=== PATIENT | female | born 1935 | race African-American/Black ===

== ENCOUNTER 2018-05-14 12:59 | Emergency (ER) | payer MEDICARE, OTHER ==
--- NOTE | 2018-05-14 13:31 | EKG ---
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
--- NOTE | 2018-05-14 13:51 | RAD ---
EXAM: Head CT without contrast. HISTORY: Fall. TECHNIQUE: Computed tomographic images of the head were obtained without contrast. *One or more of the following individualized dose reduction techniques were utilized for this examination: 1. Automated exposure control. 2. Adjustment of the mA and/or kV according to patient size. 3. Use of iterative reconstruction technique. COMPARISON: 09/06/2004. FINDINGS: There is no acute or subacute hemorrhage. There is cerebral atrophy. There are scattered areas of hypodensity throughout the cerebral white matter, likely due to chronic small vessel disease. 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 There is a right frontal scalp soft tissue hematoma. The visualized paranasal sinuses are clear. There is minimal fluid within the mastoid air cells. No suspicious calvarial lesion is seen. IMPRESSION: 1. Right frontal scalp soft tissue hematoma. 2. Scattered areas of hypodensity within the cerebral white matter, likely due to chronic small vessel disease. 3. 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 4. Cerebral atrophy. Electronically signed by: Cathie Horta MD (05/14/2018 1:48 PM) [facility]
[2018-05-14 13:58] VITALS: BP 163/95
[2018-05-14 14:01] LABS: BILIRUBIN,URINE NEG (NEG); CLARITY,URINE HAZY; COLOR,URINE YELLOW; GLUCOSE,URINE NEG (NEG)
[2018-05-14 14:02] LABS: BACTERIA,URINE FEW /HPF (0-FEW); NITRITE,URINE NEG (NEG); RBC,URINE 0 /HPF (0-2); SQUAMOUS EPITHELIAL CELL,UR MANY /LPF; UROBILINOGEN,URINE 0.2 mg/dL (0.2 mg/dL)
--- NOTE | 2018-05-14 14:05 | PHYS DOC ---
Adult General Chief Complaint Chief Complaint: MECHANICAL FALL HPI HPI 82-year-old female presents via EMS from her nursing facility for fall. The patient was found down at the care facility. When she was found, she was awake and they are unsure if she lost consciousness. When I asked the patient if she remembers the fall she does not remember the fall. She does not complain of any pain at this time. She tells me that she has been "falling all week". When asked if she knows why she is unsure. She denies having any pain or feeling dizzy prior to falling. She just started to go down. Patient denies nausea, vomiting, chest pain, shortness of breath, dysuria, urinary frequency. She is on any anticoagulant or blood thinner. Patient has dementia at baseline but is answering all my questions without difficulty. Review of Systems Review of Systems Constitutional: Denies fever or chills [] Eyes: Denies change in visual acuity, redness, or eye pain [] HENT: Denies nasal congestion or sore throat [] Respiratory: Denies cough or shortness of breath [] Cardiovascular: No additional information not addressed in HPI [] GI: Denies abdominal pain, nausea, vomiting, bloody stools or diarrhea [] : Denies dysuria or hematuria [] Musculoskeletal: Denies back pain or joint pain [] Integument: Denies rash or skin lesions [] Neurologic: Denies headache, focal weakness or sensory changes [] Endocrine: Denies polyuria or polydipsia [] All other systems were reviewed and found to be within normal limits, except as documented in this note. Physical Exam Physical Exam Constitutional: Well developed, well nourished, no acute distress, non-toxic appearance. [] HENT: Normocephalic, bilateral external ears normal, oropharynx moist, no oral exudates, nose normal. Patient has a contusion on her forehead.[] Eyes: PERRLA, EOMI, conjunctiva normal, no discharge. [] Neck: Normal range of motion, no tenderness, supple, no stridor. [] Cardiovascular: Heart rate regular rhythm, systolic ejection murmur[] Lungs & Thorax: Bilateral breath sounds clear to auscultation [] Abdomen: Bowel sounds normal, soft, no tenderness, no masses, no pulsatile masses. [] Skin: Warm, dry, no erythema, no rash. [] Back: No tenderness, no CVA tenderness. [] Extremities: No tenderness, no cyanosis, no clubbing, ROM intact, no edema. [] Neurologic: Alert and oriented X 3, normal motor function, normal sensory function, no focal deficits noted. [] Psychologic: Affect normal, judgement normal, mood normal. [] Current Patient Data Lab Results Laboratory Tests Test 05/14/18 13:15 Urine Collection Type Unknown Urine Color Yellow Urine Clarity Hazy Urine pH 6.5 Urine Specific [place] 1.010 Urine Protein Neg (NEG-TRACE) Urine Glucose (UA) Neg mg/dL (NEG) Urine Ketones (Stick) Neg mg/dL (NEG) Urine Blood Neg (NEG) Urine Nitrite Neg (NEG) Urine Bilirubin Neg (NEG) Urine Urobilinogen Dipstick 0.2 mg/dL (0.2 mg/dL) Urine Leukocyte Esterase Mod (NEG) Urine RBC 0 /HPF (0-2) Urine WBC 5-10 /HPF (0-4) Urine Squamous Epithelial Cells Many /LPF Urine Bacteria Few /HPF (0-FEW) Urine Mucus Slight /LPF EKG EKG Sinus rhythm, rate 75, leftward axis deviation, ST elevations or depressions, possible type II heart block with intermittent 2-1 conduction pattern.[] Radiology/Procedures Radiology/Procedures [] Impressions: EXAM: Head CT without contrast. HISTORY: Fall. TECHNIQUE: Computed tomographic images of the head were obtained without contrast. *One or more of the following individualized dose reduction techniques were utilized for this examination: 1. Automated exposure control. 2. Adjustment of the mA and/or kV according to patient size. 3. Use of iterative reconstruction technique. COMPARISON: 09/06/2004. FINDINGS: There is no acute or subacute hemorrhage. There is cerebral atrophy. There are scattered areas of hypodensity throughout the cerebral white matter, likely due to chronic small vessel disease. 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 There is a right frontal scalp soft tissue hematoma. The visualized paranasal sinuses are clear. There is minimal fluid within the mastoid air cells. No suspicious calvarial lesion is seen. IMPRESSION: 1. Right frontal scalp soft tissue hematoma. 2. Scattered areas of hypodensity within the cerebral white matter, likely due to chronic small vessel disease. 3. 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 4. Cerebral atrophy. Electronically signed by: Cathie Horta MD (05/14/2018 1:48 PM) [facility] Course & Med Decision Making Course & Med Decision Making Pertinent Labs and Imaging studies reviewed. (See chart for details) Patient's labs are unremarkable. Her head CT is negative for acute findings. Her urinalysis is negative for infection. I do not find anything concerning justify admission for this patient. I believe she is stable to be discharged back to her care facility. [] Dragon Disclaimer Dragon Disclaimer This electronic medical record was generated, in whole or in part, using a voice recognition dictation system. SHIRAZ SAUCEDO DO May 14, 2018 14:05
[2018-05-14 14:09] LABS: BASO % 1 % (0-3); EOS # 0.1 x10^3/uL (0.0-0.7); EOS % 2 % (0-3); HEMATOCRIT 38.7 % (36.0-47.0); HEMOGLOBIN 12.7 g/dL (12.0-15.5); LYMPH # 1.1 x10^3/uL (1.0-4.8); LYMPH % 27 % (24-48); MEAN CORPUSCULAR HEMOGLOBIN 27 pg (25-35); MEAN CORPUSCULAR HGB CONC 33 g/dL (31-37); MEAN CORPUSCULAR VOLUME 83 fL (79-100); MONO # 0.6 x10^3/uL (0.0-1.1); MONO % 15 % (0-9); NEUT # 2.3 x10^3uL (1.8-7.7); NEUT % 56 % (31-73); PLATELET COUNT 158 x10^3/uL (140-400); RED BLOOD COUNT 4.64 x10^6/uL (3.50-5.40); RED CELL DISTRIBUTION WIDTH 15.2 % (11.5-14.5); WHITE BLOOD COUNT 4.1 x10^3/uL (4.0-11.0)
[2018-05-14 14:22] LABS: ALBUMIN 3.5 g/dL (3.4-5.0); ALBUMIN/GLOBULIN RATIO 1.1 (1.0-1.7); CALCIUM 9.2 mg/dL (8.5-10.1); CREATININE 1.1 mg/dL (0.6-1.0); GFR 47.8; POTASSIUM 3.9 mmol/L (3.5-5.1); TOTAL BILIRUBIN 0.4 mg/dL (0.2-1.0); TOTAL PROTEIN 6.7 g/dL (6.4-8.2)
[2018-05-14] MEDS ORDERED: LORazepam 2 MG/ML VIAL ONE (17:02)
[2018-05-14] MEDS ORDERED: LORazepam 2 MG/ML VIAL IM ONE (17:15)
== END 2018-05-14 16:30 ==
LOC: ER 12:59
DX: S00.83XA Contusion of other part of head, initial encounter (principal); G31.9 Degenerative disease of nervous system, unspecified; I63.8 Other cerebral infarction; I73.9 Peripheral vascular disease, unspecified; F02.80 Dementia in other diseases classified elsewhere, unspecified severity, without behavioral disturbance, psychotic disturbance, mood disturbance, and anxiety; W19.XXXA Unspecified fall, initial encounter; Y93.89 Activity, other specified; Y92.89 Other specified places as the place of occurrence of the external cause; Y99.8 Other external cause status
CPT/HCPCS: 36415; 70450; 80053; 81001; 84484; 85025; 87086; 93005; 96372; 99285; J2060

== ENCOUNTER 2018-08-06 08:34 | Emergency (ER) | payer MEDICARE, OTHER ==
[~2018-08-06] VITALS: Ht 157.5 cm; Wt 75.0 kg
[2018-08-06 09:14] LABS: BASO # 0.1 x10^3/uL (0.0-0.2); BASO % 1 % (0-3); EOS # 0.1 x10^3/uL (0.0-0.7); EOS % 2 % (0-3); HEMATOCRIT 42.6 % (36.0-47.0); HEMOGLOBIN 13.6 g/dL (12.0-15.5); LYMPH # 1.3 x10^3/uL (1.0-4.8); LYMPH % 36 % (24-48); MEAN CORPUSCULAR HEMOGLOBIN 27 pg (25-35); MEAN CORPUSCULAR HGB CONC 32 g/dL (31-37); MEAN CORPUSCULAR VOLUME 85 fL (79-100); MONO # 0.6 x10^3/uL (0.0-1.1); MONO % 16 % (0-9); NEUT # 1.7 x10^3uL (1.8-7.7); NEUT % 46 % (31-73); PLATELET COUNT 152 x10^3/uL (140-400); RED BLOOD COUNT 5.01 x10^6/uL (3.50-5.40); WHITE BLOOD COUNT 3.7 x10^3/uL (4.0-11.0)
--- NOTE | 2018-08-06 09:14 | RAD ---
EXAM: AP, oblique and lateral views of the left knee DATE: 08/06/2018 8:20 AM INDICATION: fell today, left knee pain COMPARISON: No Prior FINDINGS/ IMPRESSION: No evidence of acute fracture or dislocation. Decreased bone mineral density. Small knee joint effusion although suboptimal lateral projection. Left knee joint osteoarthritis with mild lateral compartment joint space narrowing and tricompartment osteophytes. Atherosclerotic vascular calcifications are seen. Electronically signed by: Tim Lee MD (08/06/2018 9:10 AM) [facility]
--- NOTE | 2018-08-06 09:18 | PHYS DOC ---
Past History Past Medical History: A-Fib, Anxiety, Dementia, Depression, Hypertension Past Surgical History: No Surgical History Alcohol Use: None Drug Use: None Adult General Chief Complaint Chief Complaint: MECHANICAL FALL [facility] HPI Patient is an 82-year-old female who presents with report of fall in assisted. Patient indicates that she has some pain in her left knee. EMS reports that patient also had small laceration just lateral to left side of her mouth. Patient denies any head injury or neck pain. Patient had no loss of consciousness. She denies any chest pain or shortness of breath. She rates pain in her knee is mild. She states the pain is worsened with palpation and movement of the knee. Review of Systems Review of Systems Constitutional: Denies fever or chills [] Respiratory: Denies cough or shortness of breath [] Cardiovascular: No additional information not addressed in HPI [] GI: Denies abdominal pain, nausea, vomiting or diarrhea [] Musculoskeletal: Denies back pain. Complains of left knee pain. [] Integument: Small superficial laceration[] Neurologic: Denies headache, focal weakness or sensory changes [] All other systems were reviewed and found to be within normal limits, except as documented in this note. Allergies Allergies Allergies Coded Allergies Type Severity Reaction Last Updated Verified No Known Drug Allergies 05/14/18 No Physical Exam Physical Exam Constitutional: Well developed, well nourished, no acute distress, non-toxic appearance. [] HENT: Normocephalic, atraumatic, bilateral external ears normal, oropharynx moist, no oral exudates, nose normal. The left-sided lower first premolar demonstrates mobility. No active bleeding or other signs of trauma are noted. [] Eyes: PERRLA, EOMI, conjunctiva normal, no discharge. [] Neck: Normal range of motion, no tenderness, supple. [] Cardiovascular:Heart rate regular rhythm [] Lungs & Thorax: Bilateral breath sounds clear to auscultation [] Abdomen: Bowel sounds normal, soft, no tenderness. [] Skin: Warm, dry. There is a small superficial laceration measuring 0.5 cm just lateral to the left side of the lip crease extending through dermis. Laceration is linear. [] Extremities: Left knee demonstrates tenderness to palpation over the patella. No significant decrease in range of motion is noted. No soft tissue swelling or deformity noted. [] Neurologic: Awake and alert, normal motor function, normal sensory function, no focal deficits noted. [] Current Patient Data Vital Signs Vital Signs Date Time Temp Pulse Resp B/P (MAP) Pulse Ox O2 Delivery O2 Flow Rate FiO2 08/06/18 08:34 98.3 65 16 98 Room Air EKG EKG [] Radiology/Procedures Radiology/Procedures [] Impressions: X-ray of left knee demonstrates no acute bony abnormalities. Course & Med Decision Making Course & Med Decision Making Pertinent Labs and Imaging studies reviewed. (See chart for details) Facial laceration was cleaned and evaluated to its base in a bloodless field. Laceration was repaired with dermabond. Dragon Disclaimer Dragon Disclaimer This electronic medical record was generated, in whole or in part, using a voice recognition dictation system. Departure Departure: Impression: Primary Impression: Dental injury Additional Impressions: Laceration of face Contusion of left knee Disposition: HOME, SELF-CARE Condition: STABLE Referrals: ELIJAH ABEL MD (PCP) Patient Instructions: Contusion, Dental Injury, Facial Laceration Additional Instructions: Call to schedule evaluation with oral surgeon for dental injury. Problem Qualifiers Primary Impression: Dental injury Encounter type: initial encounter Qualified Codes: S09.93XA - Unspecified injury of face, initial encounter Additional Impressions: Laceration of face Encounter type: initial encounter Qualified Codes: S01.81XA - Laceration without foreign body of other part of head, initial encounter Contusion of left knee Encounter type: initial encounter Qualified Codes: S80.02XA - Contusion of left knee, initial encounter SAÚL MURGUIA Jr. DO Aug 06, 2018 09:18
[2018-08-06 09:29] LABS: ALBUMIN 3.2 g/dL (3.4-5.0); CALCIUM 8.8 mg/dL (8.5-10.1); CREATININE 1.1 mg/dL (0.6-1.0); GFR 57.8; POTASSIUM 4.3 mmol/L (3.5-5.1); TOTAL BILIRUBIN 0.4 mg/dL (0.2-1.0); TOTAL PROTEIN 6.5 g/dL (6.4-8.2)
--- NOTE | 2018-08-06 10:39 | RAD ---
EXAM: CT HEAD WITHOUT IV CONTRAST CLINICAL HISTORY: fell today, headache/dizziness with facial pain COMPARISON: None. TECHNIQUE: Routine CT of the head without contrast. Soft tissues and bone windows were reviewed. PQRS compliance statement - One or more of the following individualized dose reduction techniques were utilized for this study: 1. Automated exposure control 2. Adjustment of the mA and/or kV according to patient size 3. Use of iterative reconstruction technique FINDINGS: Motion artifact is seen limiting evaluation, most prominent in the frontal region. There is no evidence of hemorrhage, mass or extra-axial fluid collection. Perez-white differentiation is maintained with no evidence of edema. There are non-specific foci of hypodensity in the periventricular and subcortical white matter of the cerebral hemispheres. There is no mass effect or shift of the intracranial structures. The ventricles and cerebral sulci are prominent for the patients stated age consistent with generalized cerebral volume loss. The cerebellum and brainstem are unremarkable. The calvarium demonstrates no evidence of fracture or focal lesion. There is normal aeration of the visualized paranasal sinuses and mastoid air cells. The visualized portions of the orbits are normal. Atherosclerotic calcifications of the intracranial internal carotid and vertebral arteries is seen. IMPRESSION: No evidence for acute intracranial process. EXAM: CT facial bones without contrast CLINICAL HISTORY: fell today, headache/dizziness with facial pain COMPARISON: None available. TECHNIQUE: 3 mm contiguous axial scans of face/paranasal sinuses were acquired in axial plane. Coronal reformats were also generated and reviewed. PQRS compliance statement - One or more of the following individualized dose reduction techniques were utilized for this study: 1. Automated exposure control 2. Adjustment of the mA and/or kV according to patient size 3. Use of iterative reconstruction technique FINDINGS: No definite fracture is noted of the facial bones. The visualized paranasal sinuses are well-aerated. No evidence of air-fluid levels. The mastoids are unremarkable. The globes, extraocular muscles, optic nerves and retrobulbar fat are normal. Visualized upper aerodigestive tract is normal. Large dental daniela is within the left maxillary second molar. Mandible and bilateral temporomandibular joints are normal. IMPRESSION: No evidence of fracture/dislocation in facial bones. EXAM: CT CERVICAL SPINE WITHOUT IV CONTRAST CLINICAL HISTORY: fell today, headache/dizziness with facial pain COMPARISON: None available. TECHNIQUE: Helical CT of the cervical spine was performed. Axial, coronal and sagittal reformatted images were also performed. PQRS compliance statement - One or more of the following individualized dose reduction techniques were utilized for this study: 1. Automated exposure control 2. Adjustment of the mA and/or kV according to patient size 3. Use of iterative reconstruction technique FINDINGS: Vertebral body heights are preserved. No evidence of acute fracture. Moderate C3-4, C4-5 and C5-6 intervertebral disc height loss. No significant spondylolisthesis. Straightening of the normal cervical lordosis. No significant spondylolisthesis. Multilevel degenerative changes including anterior endplate osteophytes and facet degenerative changes at multiple levels. C2-C3: No significant central canal stenosis or neural foraminal narrowing. C3-C4: Posterior disc osteophyte complex with uncovertebral hypertrophy cause mild central canal stenosis, moderate left and mild right neural foraminal narrowing C4-C5: Posterior disc osteophyte complex with facet degenerative changes causes mild central canal stenosis, moderate left and mild right neural foraminal narrowing. C5-C6: Small posterior disc osteophyte complex and facet degenerative changes causes mild right neural foraminal narrowing. C6-C7: No significant central canal stenosis or neural foraminal narrowing. C7-T1: No significant central canal stenosis or neural foraminal narrowing. IMPRESSION: No evidence for acute fracture or subluxation. Multilevel degenerative changes of cervical spine as above. Electronically signed by: Tim Lee MD (08/06/2018 10:35 AM) [facility]
[2018-08-06 11:37] VITALS: BP 166/103
--- NOTE | 2018-08-10 08:24 | EKG ---
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
== END 2018-08-06 13:37 | disposition home or self-care (01) ==
LOC: ER 08:34
DX: S01.511A Laceration without foreign body of lip, initial encounter (principal); S80.02XA Contusion of left knee, initial encounter; I48.91 Unspecified atrial fibrillation; F41.9 Anxiety disorder, unspecified; F32.9 Major depressive disorder, single episode, unspecified; I10 Essential (primary) hypertension; W18.30XA Fall on same level, unspecified, initial encounter; Y93.89 Activity, other specified; Y92.128 Other place in nursing home as the place of occurrence of the external cause; Y99.8 Other external cause status
CPT/HCPCS: 12011; 36415; 70450; 70486; 72125; 73562; 80053; 85025; 93005; 99285

== ENCOUNTER 2019-01-22 07:00 | Inpatient (IN) | payer MEDICARE, OTHER ==
[~2019-01-22] VITALS: Ht 160 cm; Wt 66.2 kg
[2019-01-22] MEDS ORDERED: IV NORMAL SALINE 1,000ML 1,000 ML IV ONE (07:15)
[2019-01-22 07:27] LABS: BASO % 0 % (0-3); EOS % 0 % (0-3); HEMATOCRIT 35.3 % (36.0-47.0); HEMOGLOBIN 11.4 g/dL (12.0-15.5); LYMPH # 1.2 x10^3/uL (1.0-4.8); LYMPH % 20 % (24-48); MEAN CORPUSCULAR HEMOGLOBIN 27 pg (25-35); MEAN CORPUSCULAR HGB CONC 32 g/dL (31-37); MEAN CORPUSCULAR VOLUME 82 fL (79-100); MONO % 17 % (0-9); NEUT # 3.8 x10^3uL (1.8-7.7); NEUT % 64 % (31-73); PLATELET COUNT 144 x10^3/uL (140-400); RED BLOOD COUNT 4.29 x10^6/uL (3.50-5.40); RED CELL DISTRIBUTION WIDTH 14.7 % (11.5-14.5); WHITE BLOOD COUNT 5.9 x10^3/uL (4.0-11.0)
[2019-01-22 07:46] LABS: ALBUMIN 2.5 g/dL (3.4-5.0); ALBUMIN/GLOBULIN RATIO 0.8 (1.0-1.7); CALCIUM 8.4 mg/dL (8.5-10.1); CREATININE 1.9 mg/dL (0.6-1.0); GFR 30.7; MAGNESIUM 2.2 mg/dL (1.8-2.4); POTASSIUM 4.2 mmol/L (3.5-5.1); TOTAL BILIRUBIN 0.5 mg/dL (0.2-1.0); TOTAL PROTEIN 5.6 g/dL (6.4-8.2)
[2019-01-22 07:53] LABS: BGAS PH 7.46 (7.35-7.45)
--- NOTE | 2019-01-22 08:29 | RAD ---
EXAM: Chest, single view. HISTORY: Weakness. Mental status changes. COMPARISON: 06/22/2007 FINDINGS: A frontal view the chest is obtained. There is mild diffuse increased central predominant interstitial opacity, likely due to mild congestion. There is no consolidation. There may be trace pleural effusions. There is no pneumothorax. The heart is normal in size. There are degenerative changes involving both shoulders. IMPRESSION: Suspected mild pulmonary congestion. Electronically signed by: Cathie Horta MD (01/22/2019 8:26 AM) [facility]
--- NOTE | 2019-01-22 08:29 | RAD ---
EXAM: Head CT without contrast. HISTORY: Mental status changes. TECHNIQUE: Computed tomographic images of the head were obtained without contrast. *One or more of the following individualized dose reduction techniques were utilized for this examination: 1. Automated exposure control. 2. Adjustment of the mA and/or kV according to patient size. 3. Use of iterative reconstruction technique. COMPARISON: 08/06/2018. FINDINGS: There is no acute or subacute extra-axial or intraparenchymal hemorrhage. There is no mass effect or midline shift. There is no hydrocephalus. There are areas of decreased attenuation within the cerebral white matter, nonspecific and likely related to chronic small vessel disease. There is a superimposed suspected chronic infarct within the right parietal lobe. There may be a small focus of encephalomalacia due to chronic infarction within the left cerebellum. There is cerebral atrophy. There is a chronic left lamina preparation fracture. The orbits are otherwise unremarkable. The mastoid air cells and calvarium are unremarkable. IMPRESSION: 1. No acute intracranial finding. Note is made that MRI is more sensitive for acute infarction. 2. Hypodensity within the cerebral white matter, likely due to chronic small vessel disease. 3. Chronic infarct within the right parietal lobe and possibly the left cerebellum. 4. Cerebral atrophy. Electronically signed by: Cathie Horta MD (01/22/2019 8:26 AM) [facility]
--- NOTE | 2019-01-22 08:40 | RAD ---
EXAM: Abdomen and pelvis CT without intravenous contrast. HISTORY: Pain. TECHNIQUE: Computed tomographic images of the abdomen and pelvis were obtained without contrast. Multiplanar reformatting was performed. *One or more of the following individualized dose reduction techniques were utilized for this examination: 1. Automated exposure control. 2. Adjustment of the mA and/or kV according to patient size. 3. Use of iterative reconstruction technique. COMPARISON: None. FINDINGS: Evaluation of the lower thorax demonstrates bilateral lower lobe atelectasis. There is cardiomegaly. There is coronary artery atherosclerosis and calcification of the aortic valve and mitral valve annulus. No hepatic lesion is seen on this noncontrast exam. The gallbladder, pancreas, spleen and stomach are unremarkable. There is nodular thickening of the medial limb of the right adrenal gland or a right adrenal adenoma. The kidneys are unremarkable. There is moderate colonic stool. There is distal colonic diverticulosis. There is no evidence of diverticulitis. The urinary bladder is distended. The uterus is surgically absent. There is calcified atherosclerotic plaque within the aorta and iliac bifurcation. There is no lymphadenopathy. There are degenerative changes throughout the spine. There is bilateral hip osteoarthritis. No suspicious osseous lesion is seen. IMPRESSION: 1. Colonic diverticulosis without evidence of diverticulitis. 2. Right adrenal gland thickening or small adrenal adenoma. 3. Cardiomegaly. Electronically signed by: Cathie Horta MD (01/22/2019 8:37 AM) [facility]
--- NOTE | 2019-01-22 09:08 | PHYS DOC ---
Past History Past Medical History: A-Fib, Anxiety, Dementia, Depression, Hypertension Past Surgical History: No Surgical History Alcohol Use: None Drug Use: None Adult General Chief Complaint Chief Complaint: FEVER HPI HPI Patient is an 83-year-old female who presents with report of altered mental status from nursing facility. Nursing staff and reported to EMS that patient was unresponsive this morning. EMS reports patient hemodynamically stable but is unr esponsive to verbal stimuli. Additional history is limited due to patient mental state. Review of Systems Review of Systems Constitutional: No report of fever[] Respiratory: No report of cough or shortness of breath [] Cardiovascular: No additional information not addressed in HPI [] GI: No reported vomiting or diarrhea [] Neurologic: Positive mental status changes [] All other systems were reviewed and found to be within normal limits, except as documented in this note. Current Medications Current Medications Current Medications Medications (Trade) Dose Ordered Sig/Yefri Start Time Stop Time Status Last Admin Dose Admin Sodium Chloride 1,000 ml @ 1,000 mls/hr 1X ONCE 01/22/19 07:15 01/22/19 08:14 DC 01/22/19 07:21 1,000 MLS/HR Allergies Allergies Allergies Coded Allergies Type Severity Reaction Last Updated Verified No Known Drug Allergies 05/14/18 No Physical Exam Physical Exam Constitutional: Well developed, well nourished, no acute distress, non-toxic appearance. [] HENT: Normocephalic, atraumatic, bilateral external ears normal, oropharynx dry, no oral exudates, nose normal. [] Eyes: PERRLA, EOMI, conjunctiva normal, no discharge. [] Neck: Normal range of motion, no tenderness, supple, no stridor. [] Cardiovascular:Heart rate regular rhythm, no murmur [] Lungs & Thorax: Fine rhonchi are noted bilaterally to auscultation [] Abdomen: Bowel sounds normal, soft, with some apparent tenderness to palpation in the suprapubic region. [] Skin: Warm, dry, no erythema, no rash. [] Extremities: No tenderness, no cyanosis, no clubbing, ROM intact, no edema. [] Neurologic: Patient unresponsive to verbal stimuli and localizes to painful stimuli. [] Current Patient Data Vital Signs Vital Signs Date Time Temp Pulse Resp B/P (MAP) Pulse Ox O2 Delivery O2 Flow Rate FiO2 01/22/19 07:06 99.1 66 18 99 Nasal Cannula 3.0 Lab Results Laboratory Tests Test 01/22/19 07:07 01/22/19 07:15 White Blood Count 5.9 x10^3/uL (4.0-11.0) Red Blood Count 4.29 x10^6/uL (3.50-5.40) Hemoglobin 11.4 g/dL (12.0-15.5) L Hematocrit 35.3 % (36.0-47.0) L Mean Corpuscular Volume 82 fL (79-100) Mean Corpuscular Hemoglobin 27 pg (25-35) Mean Corpuscular Hemoglobin Concent 32 g/dL (31-37) Red Cell Distribution Width 14.7 % (11.5-14.5) H Platelet Count 144 x10^3/uL (140-400) Neutrophils (%) (Auto) 64 % (31-73) Lymphocytes (%) (Auto) 20 % (24-48) L Monocytes (%) (Auto) 17 % (0-9) H Eosinophils (%) (Auto) 0 % (0-3) Basophils (%) (Auto) 0 % (0-3) Neutrophils # (Auto) 3.8 x10^3uL (1.8-7.7) Lymphocytes # (Auto) 1.2 x10^3/uL (1.0-4.8) Monocytes # (Auto) 1.0 x10^3/uL (0.0-1.1) Eosinophils # (Auto) 0.0 x10^3/uL (0.0-0.7) Basophils # (Auto) 0.0 x10^3/uL (0.0-0.2) Prothrombin Time 11.6 SEC (9.4-11.4) H Prothrombin Time INR 1.2 (0.9-1.1) H PTT 27 SEC (23-33) Sodium Level 140 mmol/L (136-145) Potassium Level 4.2 mmol/L (3.5-5.1) Chloride Level 102 mmol/L (98-107) Carbon Dioxide Level 31 mmol/L (21-32) Anion Gap 7 (6-14) Blood Urea Nitrogen 27 mg/dL (7-20) H Creatinine 1.9 mg/dL (0.6-1.0) H Estimated GFR (Cockcroft-Gault) 30.7 BUN/Creatinine Ratio 14 (6-20) Glucose Level 101 mg/dL (70-99) H Lactic Acid Level 2.0 mmol/L (0.4-2.0) Calcium Level 8.4 mg/dL (8.5-10.1) L Magnesium Level 2.2 mg/dL (1.8-2.4) Total Bilirubin 0.5 mg/dL (0.2-1.0) Aspartate Amino Transferase (AST) 24 U/L (15-37) Alanine Aminotransferase (ALT) 13 U/L (14-59) L Alkaline Phosphatase 42 U/L (46-116) L Ammonia < 10 mcmol/L (11-34) L Troponin I Quantitative 0.029 ng/mL (0-0.055) XS-Bjd-B-Type Natriuretic Peptide 1562 pg/mL (0-449) H Total Protein 5.6 g/dL (6.4-8.2) L Albumin 2.5 g/dL (3.4-5.0) L Albumin/Globulin Ratio 0.8 (1.0-1.7) L Blood pH 7.46 (7.35-7.45) H Blood Gas PCO2 44 mmHg (35-45) Blood Gas PO2 85 mmHg (71-100) Blood Gas HCO3 31 mmol/L (22-26) H Arterial Bld O2 Saturation (Calc) 97 % (92-99) FiO2 32 % EKG EKG EKG demonstrates normal sinus rhythm with rate of 66.[] Radiology/Procedures Radiology/Procedures [] Impressions: PROCEDURE: CT ABDOMEN PELVIS WO CONTRAST EXAM: Abdomen and pelvis CT without intravenous contrast. HISTORY: Pain. TECHNIQUE: Computed tomographic images of the abdomen and pelvis were obtained without contrast. Multiplanar reformatting was performed. *One or more of the following individualized dose reduction techniques were utilized for this examination: 1. Automated exposure control. 2. Adjustment of the mA and/or kV according to patient size. 3. Use of iterative reconstruction technique. COMPARISON: None. FINDINGS: Evaluation of the lower thorax demonstrates bilateral lower lobe atelectasis. There is cardiomegaly. There is coronary artery atherosclerosis and calcification of the aortic valve and mitral valve annulus. No hepatic lesion is seen on this noncontrast exam. The gallbladder, pancreas, spleen and stomach are unremarkable. There is nodular thickening of the medial limb of the right adrenal gland or a right adrenal adenoma. The kidneys are unremarkable. There is moderate colonic stool. There is distal colonic diverticulosis. There is no evidence of diverticulitis. The urinary bladder is distended. The uterus is surgically absent. There is calcified atherosclerotic plaque within the aorta and iliac bifurcation. There is no lymphadenopathy. There are degenerative changes throughout the spine. There is bilateral hip osteoarthritis. No suspicious osseous lesion is seen. IMPRESSION: 1. Colonic diverticulosis without evidence of diverticulitis. 2. Right adrenal gland thickening or small adrenal adenoma. 3. Cardiomegaly. Electronically signed by: Cathie Horta MD (01/22/2019 8:37 AM) [facility] PROCEDURE: PORTABLE CHEST 1V EXAM: Chest, single view. HISTORY: Weakness. Mental status changes. COMPARISON: 06/22/2007 FINDINGS: A frontal view the chest is obtained. There is mild diffuse increased central predominant interstitial opacity, likely due to mild congestion. There is no consolidation. There may be trace pleural effusions. There is no pneumothorax. The heart is normal in size. There are degenerative changes involving both shoulders. IMPRESSION: Suspected mild pulmonary congestion. Electronically signed by: Cathie Horta MD (01/22/2019 8:26 AM) [facility] Course & Med Decision Making Course & Med Decision Making Pertinent Labs and Imaging studies reviewed. (See chart for details) [] Dragon Disclaimer Dragon Disclaimer This electronic medical record was generated, in whole or in part, using a voice recognition dictation system. Departure Departure: Impression: Primary Impression: CHF (congestive heart failure) Additional Impressions: Altered mental status, unspecified UTI (urinary tract infection) Disposition: ADMITTED INPATIENT Admitting Physician: Angel Marin Condition: IMPROVED Referrals: ELIJAH ABEL MD (PCP) Problem Qualifiers Primary Impression: CHF (congestive heart failure) Heart failure type: unspecified Heart failure chronicity: unspecified Qualified Codes: I50.9 - Heart failure, unspecified Additional Impressions: Altered mental status, unspecified Altered mental status type: transient alteration of awareness Qualified Codes: R40.4 - Transient alteration of awareness UTI (urinary tract infection) Urinary tract infection type: site unspecified Hematuria presence: without hematuria Qualified Codes: N39.0 - Urinary tract infection, site not specified SAÚL MURGUIA Jr. DO January 22, 2019 09:08
[2019-01-22] MEDS ORDERED: FUROSEMIDE 40 MG/4 ML VIAL IVP ONE (09:15)
[2019-01-22] MEDS ORDERED: ACETAMINOPHEN 325 MG TABLET PO PRN (11:45)
--- NOTE | 2019-01-22 12:30 | NUR ---
Patient arrived to the unit in stable condition via stretcher from the ED. No family or friends accompanied the patient, she lives at a fpc and was admitted for altered mental status. Patient is presently resting, but is confused, lethargic, and is not a reliable historian. Will continue to monitor and implement orders.
[2019-01-22 12:47] VITALS: BP 112/71
[2019-01-22 15:04] VITALS: BP 119/79
[2019-01-22] MEDS ORDERED: FURO20TA3 PO (15:45)
[2019-01-22] MEDS ORDERED: IPRA3AMP29 NEB (15:45)
[2019-01-22] MEDS ORDERED: ATEN25TA42 PO (15:45)
[2019-01-22] MEDS ORDERED: LOPE2CAP PO (15:45)
[2019-01-22] MEDS ORDERED: LISI-334 PO (15:45)
[2019-01-22] MEDS ORDERED: ACET325T9 PO (15:45)
[2019-01-22] MEDS ORDERED: DIVA250T4 PO (15:45)
[2019-01-22] MEDS ORDERED: DULO30CA2 PO (15:45)
[2019-01-22] MEDS ORDERED: TRAZ-120 PO (15:45)
[2019-01-22] MEDS ORDERED: RISP0.5T3 PO (15:45)
[2019-01-22 19:00] VITALS: BP 84/53
--- NOTE | 2019-01-22 19:47 | HP ---
ADMIT DATE: 01/22/2019 HISTORY OF PRESENT ILLNESS: An 83-year-old female patient came in through the Emergency Room with altered mental status. The patient was unresponsive this morning and although hemodynamically stable. She was unresponsive to verbal stimuli. The patient is unable to give any type of history. PAST MEDICAL HISTORY: Atrial fibrillation, anxiety, dementia, depression, hypertension, dementia with Alzheimer type, late onset; behavioral disturbances, cardiac disorders, hypertension, oxygen dependent, multiple urinary tract infections, generalized weakness, right knee severe arthritis, depression, anxiety. PAST SURGICAL HISTORY: No surgical history. FAMILY HISTORY: Unobtainable. INFLUENZA VACCINATION: Up to date. ALLERGIES: No known allergies. MEDICATIONS: Reconciled in the usual fashion. She is on breathing ipratropium, atenolol 25, lisinopril 20, Depakote, Cymbalta, trazodone 50 mg at bedtime, risperidone, loperamide. SOCIAL HISTORY: The patient unable to obtain. She is a full code apparently. REVIEW OF SYSTEMS: Unable to obtain from the patient. PHYSICAL EXAMINATION: GENERAL: This is very lethargic, sedated looking -Citizen Of [place] female, in no apparent distress. VITAL SIGNS: Blood pressure 150/86, respiratory rate 20, pulse anywhere from 70-100, temperature 99.1. HEENT: Head was atraumatic, normocephalic. Eyes: PERRLA without jaundice. Mouth and throat were normal. NECK: Supple. LUNGS: Diminished throughout. CARDIOVASCULAR: Irregularly irregular rhythm. ABDOMEN: Protuberant, soft, nontender short. EXTREMITIES: No clubbing, cyanosis, or edema. The patient barely arousable to verbal command. NEUROLOGIC: As noted above. The patient's CT and pelvis showed nothing significant, some diverticulosis. The patient's chest x-ray possible mild pulmonary congestion. 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 LABORATORY DATA: White count 6, hemoglobin 11 and hematocrit 35. Ammonia level negative. BNP 1500. BUN and creatinine 27 and 1.9. UA still pending. PLAN: The patient continued to be monitored carefully, make further evaluation on her as indicated. IMPRESSION: Change in mental status, possible mild congestive heart failure, anemia of chronic disease. Continue with monitoring and make further evaluation with her. ROBINSON BLISS MD DR: BEA/pee JOB#: [id number] / [id number]
[2019-01-22] MEDS ORDERED: LOPERAMIDE 2 MG CAPSULE PO PRN (20:30)
[2019-01-22] MEDS ORDERED: MORPHINE SULFATE 2 MG/ML DISP.SYRIN. IV PRN (21:15)
[2019-01-22] MEDS: DIVALPROEX 125 MG CAP.SPRINK PO SCH (22:14)
[2019-01-22] MEDS: traZODone 50 MG TABLET. PO SCH (22:14)
[2019-01-22] MEDS: risperiDONE 0.5 MG TABLET. PO SCH (22:15)
[2019-01-22] MEDS: ACETAMINOPHEN 325 MG TABLET PO SCH (22:15)
[2019-01-22] MEDS: IPRATRPIUM/ALBUTEROL 0.5/2.5MG 3 ML NEBU. NEB SCH (22:15)
[2019-01-22] MEDS: IV NORMAL SALINE 1,000ML 1,000 ML IV SCH (22:16)
[2019-01-23 00:25] VITALS: BP 117/73
[2019-01-23 05:51] VITALS: BP 120/79
[2019-01-23] MEDS: IV NORMAL SALINE 1,000ML 1,000 ML IV SCH ×3 (06:08→21:36)
--- NOTE | 2019-01-23 06:33 | EKG ---
[address] [address] Test Date: 2019-01-22 Test Time: 07:15:13 Pat Name: DEVON MARY Department: Room: 124 A Gender: F Kiln Remover: ROMI : 1935 Requested By: SAÚL MURGUIA Order Number: [id number] Reading MD: Akash Eaton MD Measurements Intervals [place] Rate: 66 P: ME: QRS: -48 QRSD: 92 T: 84 QT: 390 QTc: 411 Interpretive Statements PROBABLE ATRIAL FLUTTER/FIB CONSIDER PRIOR SEPTAL INFARCT Electronically Signed On 01-23-2019 13:50:32 CDT by Akash Eaton MD
[2019-01-23] MEDS ORDERED: ATENOLOL 25 MG TABLET PO SCH (09:00)
[2019-01-23] MEDS ORDERED: LISINOPRIL 20 MG TABLET PO SCH (09:00)
[2019-01-23] MEDS: IPRATRPIUM/ALBUTEROL 0.5/2.5MG 3 ML NEBU. NEB SCH ×4 (09:00→20:43)
[2019-01-23] MEDS ORDERED: FUROSEMIDE 20 MG TABLET PO SCH (09:00)
[2019-01-23 09:19] LABS: BACTERIA,URINE MOD /HPF (0-FEW); BILIRUBIN,URINE NEG (NEG); CLARITY,URINE TURBID; COLOR,URINE YELLOW; GLUCOSE,URINE NEG (NEG); NITRITE,URINE NEG (NEG); UROBILINOGEN,URINE 1 mg/dL (0.2 mg/dL); WBC,URINE >40 /HPF (0-4)
--- NOTE | 2019-01-23 09:19 | PDOC2 ---
TESFAYE PADILLA APRN 01/23/19 0919: CONSULT Date of Admission DATE: 01/23/19 TIME: 09:17 Reason for Consult: CHF Problem List Problems Medical Problems: (1) Altered mental status, unspecified Status: Acute (2) CHF (congestive heart failure) Status: Acute (3) UTI (urinary tract infection) Status: Acute History of Present Illness Ms Nguyễn is an 83 year old female long-term resident who presented to the ED due to change in mental status and being unresponsive. Consult was called due to elevated bhp and possible mild heart failure on CXR. She has apparently been unresponsive to verbal stimuli and cares since admission. She is currently answering questions clearly but is confused stating that she lives with her mother and that she was probably unresponsive because she had some whiskey. Nursing reports she has been nonverbal up to now. She denies chest pain, dyspnea or palpitations. She denies any pain or discomfort of any kind. She denies knowledge of why she is here. History is obtained from the chart. Past Medical History PAST MEDICAL HISTORY: Atrial fibrillation, anxiety, dementia, depression, hypertension, dementia with Alzheimer type, late onset; behavioral disturbances, cardiac disorders, hypertension, oxygen dependent, multiple urinary tract infections, generalized weakness, right knee severe arthritis, depression, anxiety. Past Surgical History unknown Family History non contributory due to age Social History long-term resident, otherwise unknown. Current Medications Current Medications Sodium Chloride 1,000 ml @ 1,000 mls/hr 1X ONCE IV Last administered on 01/22/19at 07:21; Start 01/22/19 at 07:15; Stop 01/22/19 at 08:14; Status DC Furosemide (Lasix) 40 mg 1X ONCE IVP Last administered on 01/22/19at 09:38; Start 01/22/19 at 09:15; Stop 01/22/19 at 09:16; Status DC Ceftriaxone Sodium 1 gm/ Sodium Chloride 50 ml @ 100 mls/hr 1X ONCE IV Last administered on 01/22/19at 12:58; Start 01/22/19 at 11:15; Stop 01/22/19 at 11:44; Status DC Acetaminophen (Tylenol) 650 mg PRN Q4HRS PRN PO FEVER; Start 01/22/19 at 11:45; Stop 01/23/19 at 11:44 Acetaminophen (Tylenol) 650 mg TID PO Last administered on 01/22/19at 22:15; Start 01/22/19 at 21:00 Atenolol (Tenormin) 25 mg DAILY PO ; Start 01/23/19 at 09:00 Furosemide (Lasix) 20 mg DAILY PO ; Start 01/23/19 at 09:00 Albuterol/ Ipratropium (Duoneb) 3 ml QID NEB Last administered on 01/22/19at 22:15; Start 01/22/19 at 21:00 Lisinopril (Prinivil) 20 mg DAILY PO ; Start 01/23/19 at 09:00 Divalproex Sodium (Depakote Sprinkles) 250 mg BID PO Last administered on at 22:14; Start 01/22/19 at 21:00 Duloxetine HCl (Cymbalta) 30 mg DAILY PO ; Start 01/23/19 at 09:00 Loperamide HCl (Imodium) 2 mg PRN Q15MIN PRN PO DIARRHEA; Start 01/22/19 at 20:30 Risperidone (RisperDAL) 0.5 mg BID PO Last administered on 01/22/19at 22:15; Start 01/22/19 at 21:00 Trazodone HCl (Desyrel) 25 mg QHS PO Last administered on 01/22/19at 22:14; Start 01/22/19 at 21:00 Morphine Sulfate (Morphine 2mg Syringe) 1 mg PRN Q2HR PRN IV PAIN; Start 01/22/19 at 21:15; Stop 01/22/19 at 21:17; Status DC Sodium Chloride 1,000 ml @ 150 mls/hr Q6H40M IV Last administered on 01/23/19at 06:08; Start 01/22/19 at 21:30 Active Scripts Active Reported Duoneb 0.5-3(2.5) Mg/3 Ml (Albuterol/Ipratropium) 3 Ml Ampul.neb 3 Ml NEB QID Loperamide (Loperamide Hcl) 2 Mg Capsule 2 Mg PO PRN PRN Trazodone Hcl 50 Mg Tablet 0.5 Tab PO QHS Tylenol (Acetaminophen) 325 Mg Tablet 650 Mg PO TID Risperidone 0.5 Mg Tablet 0.5 Mg PO BID Cymbalta (Duloxetine Hcl) 30 Mg Capsule.dr 1 Cap PO DAILY Depakote (Divalproex Sodium) 250 Mg Tablet.dr 250 Mg PO BID Lisinopril 20 Mg Tablet 1 Tab PO DAILY Furosemide 20 Mg Tablet 1 Tab PO DAILY Atenolol (Atenolol) 25 Mg Tablet 25 Mg PO DAILY Allergies: Coded Allergies: No Known Drug Allergies (Unverified , 05/14/18) Review of System unable to obtain due to mental status Physical Exam awake but keeps eyes closed. General: Cooperative, No acute distress HEENT: Atraumatic, Mucous membr. moist/pink Lungs: Clear to auscultation Heart: Normal S1, Normal S2, Other (no gallops,clicks or rubs) Abdomen: Normal bowel sounds, Soft, No tenderness Extremities: No cyanosis, No edema, Normal pulses Neuro: Normal speech Psych/Mental Status: Mood NL, Other (confused) VITALS Vital Signs Date Time Temp Pulse Resp B/P (MAP) Pulse Ox O2 Delivery O2 Flow Rate FiO2 01/23/19 05:51 98.5 94 20 120/79 (93) 94 Nasal Cannula 2.0 Labs Laboratory Tests Test 01/22/19 07:07 01/22/19 07:15 01/22/19 12:55 White Blood Count 5.9 x10^3/uL (4.0-11.0) Red Blood Count 4.29 x10^6/uL (3.50-5.40) Hemoglobin 11.4 g/dL (12.0-15.5) Hematocrit 35.3 % (36.0-47.0) Mean Corpuscular Volume 82 fL (79-100) Mean Corpuscular Hemoglobin 27 pg (25-35) Mean Corpuscular Hemoglobin Concent 32 g/dL (31-37) Red Cell Distribution Width 14.7 % (11.5-14.5) Platelet Count 144 x10^3/uL (140-400) Neutrophils (%) (Auto) 64 % (31-73) Lymphocytes (%) (Auto) 20 % (24-48) Monocytes (%) (Auto) 17 % (0-9) Eosinophils (%) (Auto) 0 % (0-3) Basophils (%) (Auto) 0 % (0-3) Neutrophils # (Auto) 3.8 x10^3uL (1.8-7.7) Lymphocytes # (Auto) 1.2 x10^3/uL (1.0-4.8) Monocytes # (Auto) 1.0 x10^3/uL (0.0-1.1) Eosinophils # (Auto) 0.0 x10^3/uL (0.0-0.7) Basophils # (Auto) 0.0 x10^3/uL (0.0-0.2) Prothrombin Time 11.6 SEC (9.4-11.4) Prothromb Time International Ratio 1.2 (0.9-1.1) Activated Partial Thromboplast Time 27 SEC (23-33) Sodium Level 140 mmol/L (136-145) Potassium Level 4.2 mmol/L (3.5-5.1) Chloride Level 102 mmol/L (98-107) Carbon Dioxide Level 31 mmol/L (21-32) Anion Gap 7 (6-14) Blood Urea Nitrogen 27 mg/dL (7-20) Creatinine 1.9 mg/dL (0.6-1.0) Estimated GFR (Cockcroft-Gault) 30.7 BUN/Creatinine Ratio 14 (6-20) Glucose Level 101 mg/dL (70-99) Lactic Acid Level 2.0 mmol/L (0.4-2.0) 1.0 mmol/L (0.4-2.0) Calcium Level 8.4 mg/dL (8.5-10.1) Magnesium Level 2.2 mg/dL (1.8-2.4) Total Bilirubin 0.5 mg/dL (0.2-1.0) Aspartate Amino Transf (AST/SGOT) 24 U/L (15-37) Alanine Aminotransferase (ALT/SGPT) 13 U/L (14-59) Alkaline Phosphatase 42 U/L (46-116) Ammonia < 10 mcmol/L (11-34) Troponin I Quantitative 0.029 ng/mL (0-0.055) 0.017 ng/mL (0-0.055) AN-Zwg-E-Type Natriuretic Peptide 1562 pg/mL (0-449) Total Protein 5.6 g/dL (6.4-8.2) Albumin 2.5 g/dL (3.4-5.0) Albumin/Globulin Ratio 0.8 (1.0-1.7) Blood Gas pH 7.46 (7.35-7.45) Blood Gas PCO2 44 mmHg (35-45) Blood Gas PO2 85 mmHg (71-100) Blood Gas HCO3 31 mmol/L (22-26) Arterial Bld O2 Saturation (Calc) 97 % (92-99) FiO2 32 % Images CXR - IMPRESSION: Suspected mild pulmonary congestion. Assessment/Plan 1. UTI - per PCP 2. AMS - likely secondary to #1 3. elevated BNP - currently no overt heart failure, monitor closely due to fluid resuscitation. 4. hypotension - WNL this am. Monitor, resume home meds one at a time. 5. mild anemia, thrombocytopenia - [per PCP 6. dementia - per PCP, neuro consulted. ANA PATRICK MD 01/23/19 4580: CONSULT Assessment/Plan Pt. seen and examined. Agree with above Loom Doffer note. No acute cardiac issues. No significant edema. Supportive care. TESFAYE PADILLA APRN January 23, 2019 09:19 ANA PATRICK MD January 23, 2019 21:53
[2019-01-23 09:20] LABS: SQUAMOUS EPITHELIAL CELL,UR OCC /LPF
[2019-01-23 09:54] LABS: BASO % 0 % (0-3); EOS % 0 % (0-3); HEMATOCRIT 32.4 % (36.0-47.0); HEMOGLOBIN 10.5 g/dL (12.0-15.5); LYMPH # 0.8 x10^3/uL (1.0-4.8); LYMPH % 17 % (24-48); MEAN CORPUSCULAR HEMOGLOBIN 27 pg (25-35); MEAN CORPUSCULAR HGB CONC 32 g/dL (31-37); MEAN CORPUSCULAR VOLUME 82 fL (79-100); MONO # 0.7 x10^3/uL (0.0-1.1); MONO % 15 % (0-9); NEUT % 67 % (31-73); PLATELET COUNT 118 x10^3/uL (140-400); RED BLOOD COUNT 3.92 x10^6/uL (3.50-5.40); RED CELL DISTRIBUTION WIDTH 14.3 % (11.5-14.5); WHITE BLOOD COUNT 4.4 x10^3/uL (4.0-11.0)
[2019-01-23 10:08] LABS: ALBUMIN 2.3 g/dL (3.4-5.0); ALBUMIN/GLOBULIN RATIO 0.8 (1.0-1.7); CALCIUM 8.2 mg/dL (8.5-10.1); GFR 64.4; POTASSIUM 3.6 mmol/L (3.5-5.1); TOTAL BILIRUBIN 0.4 mg/dL (0.2-1.0); TOTAL PROTEIN 5.3 g/dL (6.4-8.2)
[2019-01-23] MEDS: DULoxetine HCL 30 MG CAPSULE.DR PO SCH (10:16)
[2019-01-23] MEDS: DIVALPROEX 125 MG CAP.SPRINK PO SCH ×2 (10:16→21:36)
[2019-01-23] MEDS: risperiDONE 0.5 MG TABLET. PO SCH ×2 (10:16→21:37)
[2019-01-23] MEDS: ACETAMINOPHEN 325 MG TABLET PO SCH ×3 (10:18→21:37)
[2019-01-23 11:25] VITALS: BP 101/65
[2019-01-23 12:44] LABS: BGAS PH 7.44 (7.35-7.45)
--- NOTE | 2019-01-23 15:01 | CARD ---
MR#: [id number] Date of Study: 01/23/2019 Ordering Physician: TESFAYE PADILLA, Referring Physician: [place] Tech: Jessica Guadarrama RDCS APPROVED REPORT EXAM: Two-dimensional and M-mode echocardiogram with Doppler and color Doppler. Other Information Quality : Technically LimitedHR: 100bpm Rhythm : TachycardiaTechnically limited study due to body habitus. INDICATION Elev trop 2D DIMENSIONS RVDd2.7 (2.9-3.5cm)Left Atrium(2D)3.4 (1.6-4.0cm) IVSd1.2 (0.7-1.1cm)Aortic Root(2D)2.7 (2.0-3.7cm) LVDd3.5 (3.9-5.9cm)LVOT Diameter1.7 (1.8-2.4cm) PWd1.1 (0.7-1.1cm)LVDs2.3 (2.5-4.0cm) FS (%) 35.5 %SV33.5 ml LVEF(%)66.0 (>50%) M-Mode DIMENSIONS Left Atrium(MM)3.70 (2.5-4.0cm)Aortic Root2.89 (2.2-3.7cm) Aortic Valve AoV Peak Blair.269.2cm/sAoV VTI39.7cm AO Peak GR.29.0mmHgLVOT Peak Blair.156.3cm/s LVOT VTI 23.54cmAO Mean GR.16mmHg KENDAL (VMAX)1.93hx6IEZ (VTI)1.41cm2 Mitral Valve MV E Naaidthn508.6cm/sMV E Peak Gr.10mmHg MV DECEL XIGO81zfUA A Kwwlfaoj35.5cm/s MV E Mean Gr.4mmHgE/A Ratio2.7 Pulmonary Valve PV Peak Psxmvjwf555.7cm/sPV Peak Grad.4mmHg Tricuspid Valve TR P. Yxycmmbm371ic/sRAP VSNOKJMR2mrJx TR Peak Gr.48wdVbMIUM87asSs LEFT VENTRICLE The left ventricle is normal size. There is moderate concentric left ventricular hypertrophy. The lef t ventricular systolic function is normal and the ejection fraction is within normal range. The Eject ion Fraction is 65-70%. There is normal LV segmental wall motion. Tissue Doppler imaging reveals mode rate left ventricular diastolic dysfunction. RIGHT VENTRICLE The right ventricle is normal size. There is normal right ventricular wall thickness. The right ventr icular systolic function is normal. ATRIA The left atrium size is normal. The right atrium size is normal. The interatrial septum is intact wit h no evidence for an atrial septal defect or patent foramen ovale as noted on 2-D or Doppler imaging. AORTIC VALVE The aortic valve is mildly to moderately thickened and moderately calcified. The aortic valve is tril eaflet. Doppler and Color Flow revealed no significant aortic regurgitation. There is mild subvalvula r aortic stenosis. Calculated aortic valve area is 1.5 cm2 with maximum pressure gradient of 29 mmHg and mean pressure gradient of 16 mmHg. MITRAL VALVE Mitral annular calcification is moderate. There is no evidence of mitral valve prolapse. There is no mitral valve stenosis. Doppler and Color-flow revealed mild mitral regurgitation. TRICUSPID VALVE The tricuspid valve is normal in structure and function. Doppler and Color Flow revealed mild tricusp id regurgitation. The PA pressure was estimated at 49 mmHg. There is no tricuspid valve prolapse or v egetation. There is no tricuspid valve stenosis. PULMONIC VALVE The pulmonic valve is not well visualized. GREAT VESSELS The aortic root is normal in size. The ascending aorta is normal in size. The IVC is normal in size a nd collapses >50% with inspiration. PERICARDIAL EFFUSION There is no evidence of significant pericardial effusion. Critical Notification Critical Value: No <Conclusion> There is moderate concentric left ventricular hypertrophy. The left ventricular systolic function is normal and the ejection fraction is within normal range. Th e Ejection Fraction is 65-70%. There is normal LV segmental wall motion. There is mild subvalvular aortic stenosis. Calculated aortic valve area is 1.5 cm2 with maximum pres sure gradient of 29 mmHg and mean pressure gradient of 16 mmHg. Doppler and Color Flow revealed mild tricuspid regurgitation. The PA pressure was estimated at 49 mmH g. Signed by : Akash Eaton, Electronically Approved : 01/23/2019 15:01:45
[2019-01-23 15:25] VITALS: BP 107/62
[2019-01-23 20:14] VITALS: BP 117/57
[2019-01-23] MEDS: traZODone 50 MG TABLET. PO SCH (21:37)
[2019-01-23 23:30] VITALS: BP 125/75
--- NOTE | 2019-01-24 02:38 | PN ---
DATE: 01/23/2019 SUBJECTIVE: The patient is an 83-year-old female patient, a resident at [facility] in [place], who apparently was brought to the Emergency Room with altered mental status. Nursing staff reported the patient was unresponsive, but was hemodynamically stable. The patient was unable to give any useful information. According to the ER physician, she apparently was extensively investigated and she was found to be clinically in congestive heart failure, altered mental status and urinary tract infection. I am not really sure that she did receive an antibiotic in the Emergency Room and there is no documentation of that. When I saw her this morning, she was resting slightly propped up in bed, definitely more awake, alert, responding somewhat appropriately, although she seemed to be confused. OBJECTIVE: GENERAL: When I examined her, she was pale. No jaundice, cyanosis, or thyromegaly. No jugular venous distension. No limb edema. VITAL SIGNS: Her heart rate was 94, blood pressure was 111/65, temperature was 98.4, respiratory rate 22, and oxygen saturation was 99% on 2 liters of oxygen. HEAD, EYES, EARS, NOSE AND THROAT: Showed normocephalic, atraumatic. NECK: Supple. HEART: Showed normal first and second heart sounds with no gallop, rub or murmur. CHEST: Clear to auscultation. No crepitation or rhonchi. ABDOMEN: Distended, soft, nontender. No guarding or rigidity. No organomegaly. Hernial orifice intact. Bowel sounds normal. NEUROLOGIC: She was awake, alert, responding appropriately. All cranial nerves seem to be grossly intact. She moves upper extremities to much good extent than lower extremities, mostly bed bound. Her intake over the last 24 hours was 2540, output was 625. LABORATORY DATA: Her lab work this morning showed that her serum sodium was 142, potassium 3.6, chloride 106, bicarbonate 29, anion gap of 7, BUN 21, creatinine was 1. Her estimated GFR was 64 mL per minute. Her glucose was 133. Lactic acidosis risen up to 2.2. Serum calcium was 8.2. Total bilirubin, AST, ALT, alkaline phosphatase were normal. Total protein was 5.3, albumin was 2.3. She has 2 sets of cardiac enzymes showed that the initial one was 0.029 and second was 0.017. ASSESSMENT: 1. Altered mental status, resolved. The patient is now more awake, alert. 2. Urinary tract infection for which she is on IV Rocephin. 3. Acute kidney injury. Her BUN and creatinine has came down from 27 to 21 and creatinine came down from 1.9 to 1. 4. She has lactic acidosis up to 2.2. Her chest x-ray showed suspected mild pulmonary congestion, although the CT scan of the abdomen and pelvis showed that the evaluation of the lower thorax demonstrates bilateral lower lobe atelectasis. There is cardiomegaly. There is coronary artery atherosclerosis and calcification of aortic valve and mitral valve annulus. In summary, this is an 83-year-old female patient who was admitted with altered mental status, was found to have; 1. Urinary tract infection. 2. Acute kidney injury that is improving. 3. Lactic acidosis. 4. She seemed to be clinically has aortic stenosis. She is scheduled for an echocardiogram to be done today. She has also severe protein-calorie malnutrition. PLAN: My plan is to continue with IV fluid, continue with IV Rocephin. We will monitor her labs again tomorrow and decide on further management accordingly. [facility] MD DR: MOISÉS/pee JOB#: [id number] / [id number]
[2019-01-24 04:55] VITALS: BP 147/88
[2019-01-24] MEDS: IPRATRPIUM/ALBUTEROL 0.5/2.5MG 3 ML NEBU. NEB SCH ×4 (05:28→20:12)
[2019-01-24 07:00] LABS: HEMATOCRIT 32.1 % (36.0-47.0); HEMOGLOBIN 10.3 g/dL (12.0-15.5); RED BLOOD COUNT 3.87 x10^6/uL (3.50-5.40); RED CELL DISTRIBUTION WIDTH 14.5 % (11.5-14.5); WHITE BLOOD COUNT 4.1 x10^3/uL (4.0-11.0)
[2019-01-24 07:38] LABS: ALBUMIN 2.2 g/dL (3.4-5.0); ALBUMIN/GLOBULIN RATIO 0.7 (1.0-1.7); CALCIUM 8.2 mg/dL (8.5-10.1); CREATININE 0.7 mg/dL (0.6-1.0); GFR 97.2; POTASSIUM 3.7 mmol/L (3.5-5.1); TOTAL BILIRUBIN 0.5 mg/dL (0.2-1.0); TOTAL PROTEIN 5.2 g/dL (6.4-8.2)
[2019-01-24] MEDS: IV NORMAL SALINE 1,000ML 1,000 ML IV SCH ×2 (08:25→15:41)
[2019-01-24] MEDS: DIVALPROEX 125 MG CAP.SPRINK PO SCH ×2 (08:28→21:21)
[2019-01-24] MEDS: ACETAMINOPHEN 325 MG TABLET PO SCH ×3 (08:28→21:21)
[2019-01-24] MEDS: DULoxetine HCL 30 MG CAPSULE.DR PO SCH (08:28)
[2019-01-24] MEDS: risperiDONE 0.5 MG TABLET. PO SCH ×2 (08:28→21:21)
[2019-01-24] MEDS: LACTOBACILLUS RHAMNOSUS GG 1 CAPSULE. PO SCH ×2 (08:30→21:21)
--- NOTE | 2019-01-24 09:53 | NUR ---
Bedside Swallow Evaluation completed. Please refer to full report for additional information. Impressions: Mild oropharyngeal dysphagia w/ pt demonstrating increased s/s aspiration w/ trials of thin liquids. Decreased oral control w/ cup drinking and inhalation w/ utilizing straw w/ thin liquids were contributing factory to swallow safety. Honey thick liquids and puree appear to be low risk however pt demonstrated hoarse voice and congested cough prior to and throughout evaluation complicating clinical swallow assessment. Recommendations: Continue dysphagia I diet. Honey thick liquids. Swallow precautions (posted in room). dysphagia f/u. D/w RN.
--- NOTE | 2019-01-24 10:18 | PDOC ---
PROGRESS NOTES Diagnosis Problem Problems Medical Problems: (1) Altered mental status, unspecified Status: Acute (2) CHF (congestive heart failure) Status: Acute (3) UTI (urinary tract infection) Status: Acute Assessment Problems Medical Problems: (1) Altered mental status, unspecified Status: Acute (2) CHF (congestive heart failure) Status: Acute (3) UTI (urinary tract infection) Status: Acute 1. UTI - per PCP 2. AMS - likely secondary to #1 3. elevated BNP - currently no overt heart failure, monitor closely due to fluid resuscitation. 4. Afib/flutter - likely chronic, rate well controlled. start asa for stroke prophylaxis, poor candidate for skilled nursing OAC due to dementia and fall risk. 5. hypotension - controlled. 6. mild anemia, thrombocytopenia - per PCP, monitor on ASA 7. dementia - per PCP, neuro consulted. Subjective denies complaints. Objective Vital Signs Date Time Temp Pulse Resp B/P (MAP) Pulse Ox O2 Delivery O2 Flow Rate FiO2 01/24/19 09:31 96 Nasal Cannula 2.0 01/24/19 04:55 98.0 67 18 147/88 (107) Intake and Output 01/24/19 06:59 Intake Total 3130 ml Output Total 1050 ml Balance 2080 ml Intake Oral 1080 ml IV Total 2050 ml Output Urine Total 1050 ml Physical Exam gen: awake, alert, pleasantly confused CV : IRR, + ESM 2/6, no gallops, clicks or rubs Lungs: clear Abd: soft, non tender, +bowel sounds ext: trace edema Review of Relevant I have reviewed the following items nathaly (where applicable) has been applied. Labs Laboratory Tests Test 01/22/19 12:55 01/22/19 13:21 01/23/19 08:44 01/23/19 09:45 Lactic Acid Level 1.0 mmol/L (0.4-2.0) 2.2 mmol/L (0.4-2.0) Troponin I Quantitative 0.017 ng/mL (0-0.055) Nasal Screen MRSA (PCR) Negative (Negative) Urine Collection Type U cath Urine Color Yellow Urine Clarity Turbid Urine pH 5.5 Urine Specific [place] >=1.030 Urine Protein 100 mg/dl (NEG-TRACE) Urine Glucose (UA) Neg mg/dL (NEG) Urine Ketones (Stick) 15 mg/dL (NEG) Urine Blood Large (NEG) Urine Nitrite Neg (NEG) Urine Bilirubin Neg (NEG) Urine Urobilinogen Dipstick 1 mg/dL (0.2 mg/dL) Urine Leukocyte Esterase Large (NEG) Urine RBC 11-20 /HPF (0-2) Urine WBC >40 /HPF (0-4) Urine Squamous Epithelial Cells Occ /LPF Urine Transitional Epithelial Cells Occ /LPF Urine Bacteria Mod /HPF (0-FEW) White Blood Count 4.4 x10^3/uL (4.0-11.0) Red Blood Count 3.92 x10^6/uL (3.50-5.40) Hemoglobin 10.5 g/dL (12.0-15.5) Hematocrit 32.4 % (36.0-47.0) Mean Corpuscular Volume 82 fL (79-100) Mean Corpuscular Hemoglobin 27 pg (25-35) Mean Corpuscular Hemoglobin Concent 32 g/dL (31-37) Red Cell Distribution Width 14.3 % (11.5-14.5) Platelet Count 118 x10^3/uL (140-400) Neutrophils (%) (Auto) 67 % (31-73) Lymphocytes (%) (Auto) 17 % (24-48) Monocytes (%) (Auto) 15 % (0-9) Eosinophils (%) (Auto) 0 % (0-3) Basophils (%) (Auto) 0 % (0-3) Neutrophils # (Auto) 3.0 x10^3uL (1.8-7.7) Lymphocytes # (Auto) 0.8 x10^3/uL (1.0-4.8) Monocytes # (Auto) 0.7 x10^3/uL (0.0-1.1) Eosinophils # (Auto) 0.0 x10^3/uL (0.0-0.7) Basophils # (Auto) 0.0 x10^3/uL (0.0-0.2) Sodium Level 142 mmol/L (136-145) Potassium Level 3.6 mmol/L (3.5-5.1) Chloride Level 106 mmol/L (98-107) Carbon Dioxide Level 29 mmol/L (21-32) Anion Gap 7 (6-14) Blood Urea Nitrogen 21 mg/dL (7-20) Creatinine 1.0 mg/dL (0.6-1.0) Estimated GFR (Cockcroft-Gault) 64.4 BUN/Creatinine Ratio 21 (6-20) Glucose Level 133 mg/dL (70-99) Calcium Level 8.2 mg/dL (8.5-10.1) Total Bilirubin 0.4 mg/dL (0.2-1.0) Aspartate Amino Transf (AST/SGOT) 30 U/L (15-37) Alanine Aminotransferase (ALT/SGPT) 15 U/L (14-59) Alkaline Phosphatase 41 U/L (46-116) Total Protein 5.3 g/dL (6.4-8.2) Albumin 2.3 g/dL (3.4-5.0) Albumin/Globulin Ratio 0.8 (1.0-1.7) Test 01/23/19 12:33 01/23/19 12:37 01/24/19 06:52 Blood Gas pH 7.44 (7.35-7.45) Blood Gas PCO2 42 mmHg (35-45) Blood Gas PO2 111 mmHg (71-100) Blood Gas HCO3 28 mmol/L (22-26) Arterial Bld O2 Saturation (Calc) 98 % (92-99) FiO2 28 % Lactic Acid Level 1.7 mmol/L (0.4-2.0) White Blood Count 4.1 x10^3/uL (4.0-11.0) Red Blood Count 3.87 x10^6/uL (3.50-5.40) Hemoglobin 10.3 g/dL (12.0-15.5) Hematocrit 32.1 % (36.0-47.0) Mean Corpuscular Volume 83 fL (79-100) Mean Corpuscular Hemoglobin 27 pg (25-35) Mean Corpuscular Hemoglobin Concent 32 g/dL (31-37) Red Cell Distribution Width 14.5 % (11.5-14.5) Platelet Count 117 x10^3/uL (140-400) Sodium Level 143 mmol/L (136-145) Potassium Level 3.7 mmol/L (3.5-5.1) Chloride Level 107 mmol/L (98-107) Carbon Dioxide Level 29 mmol/L (21-32) Anion Gap 7 (6-14) Blood Urea Nitrogen 17 mg/dL (7-20) Creatinine 0.7 mg/dL (0.6-1.0) Estimated GFR (Cockcroft-Gault) 97.2 BUN/Creatinine Ratio 24 (6-20) Glucose Level 86 mg/dL (70-99) Calcium Level 8.2 mg/dL (8.5-10.1) Total Bilirubin 0.5 mg/dL (0.2-1.0) Aspartate Amino Transf (AST/SGOT) 22 U/L (15-37) Alanine Aminotransferase (ALT/SGPT) 13 U/L (14-59) Alkaline Phosphatase 44 U/L (46-116) Total Protein 5.2 g/dL (6.4-8.2) Albumin 2.2 g/dL (3.4-5.0) Albumin/Globulin Ratio 0.7 (1.0-1.7) Microbiology 01/22/19 Blood Culture - Preliminary, Resulted NO GROWTH AFTER 2 DAYS... Medications Current Medications Sodium Chloride 1,000 ml @ 1,000 mls/hr 1X ONCE IV Last administered on 01/22/19at 07:21; Start 01/22/19 at 07:15; Stop 01/22/19 at 08:14; Status DC Furosemide (Lasix) 40 mg 1X ONCE IVP Last administered on 01/22/19at 09:38; Start 01/22/19 at 09:15; Stop 01/22/19 at 09:16; Status DC Ceftriaxone Sodium 1 gm/ Sodium Chloride 50 ml @ 100 mls/hr 1X ONCE IV Last administered on 01/22/19at 12:58; Start 01/22/19 at 11:15; Stop 01/22/19 at 11:44; Status DC Acetaminophen (Tylenol) 650 mg PRN Q4HRS PRN PO FEVER; Start 01/22/19 at 11:45; Stop 01/23/19 at 11:44; Status DC Acetaminophen (Tylenol) 650 mg TID PO Last administered on 01/23/19at 21:37; Start 01/22/19 at 21:00 Atenolol (Tenormin) 25 mg DAILY PO ; Start 01/23/19 at 09:00; Stop 01/23/19 at 12:57; Status DC Furosemide (Lasix) 20 mg DAILY PO ; Start 01/23/19 at 09:00; Stop 01/23/19 at 12:57; Status DC Albuterol/ Ipratropium (Duoneb) 3 ml QID NEB Last administered on 01/24/19 09:30; Start 01/22/19 at 21:00 Lisinopril (Prinivil) 20 mg DAILY PO ; Start 01/23/19 at 09:00; Stop 01/23/19 at 12:57; Status DC Divalproex Sodium (Depakote Sprinkles) 250 mg BID PO Last administered on 01/24/19 08:28; Start 01/22/19 at 21:00 Duloxetine HCl (Cymbalta) 30 mg DAILY PO Last administered on 01/24/19 08:28; Start 01/23/19 at 09:00 Loperamide HCl (Imodium) 2 mg PRN Q15MIN PRN PO DIARRHEA; Start 01/22/19 at 20:30 Risperidone (RisperDAL) 0.5 mg BID PO Last administered on 01/24/19 08:28; Start 01/22/19 at 21:00 Trazodone HCl (Desyrel) 25 mg QHS PO Last administered on 01/23/19at 21:37; Start 01/22/19 at 21:00 Morphine Sulfate (Morphine 2mg Syringe) 1 mg PRN Q2HR PRN IV PAIN; Start 01/22/19 at 21:15; Stop 01/22/19 at 21:17; Status DC Sodium Chloride 1,000 ml @ 100 mls/hr Q10H IV Last administered on 01/24/19at 08:25; Start 01/22/19 at 21:30 Ceftriaxone Sodium 1 gm/ Sodium Chloride 50 ml @ 100 mls/hr Q24H IV Last administered on 01/23/19at 14:55; Start 01/23/19 at 13:30 Lactobacillus Rhamnosus (Culturelle) 1 cap BID PO Last administered on 01/24/19at 08:30; Start 01/24/19 at 09:00 Active Scripts Active Reported Duoneb 0.5-3(2.5) Mg/3 Ml (Albuterol/Ipratropium) 3 Ml Ampul.neb 3 Ml NEB QID Loperamide (Loperamide Hcl) 2 Mg Capsule 2 Mg PO PRN PRN Trazodone Hcl 50 Mg Tablet 0.5 Tab PO QHS Tylenol (Acetaminophen) 325 Mg Tablet 650 Mg PO TID Risperidone 0.5 Mg Tablet 0.5 Mg PO BID Cymbalta (Duloxetine Hcl) 30 Mg Capsule. 1 Cap PO DAILY Depakote (Divalproex Sodium) 250 Mg Tablet. 250 Mg PO BID Lisinopril 20 Mg Tablet 1 Tab PO DAILY Furosemide 20 Mg Tablet 1 Tab PO DAILY Atenolol (Atenolol) 25 Mg Tablet 25 Mg PO DAILY Vitals/I & O Vital Sign - Last 24 Hours 01/23/19 01/23/19 01/23/19 01/23/19 10:21 11:25 15:25 17:21 Temp 98.4 98.6 Pulse 94 72 Resp 22 22 B/P (MAP) 101/65 (77) 107/62 (77) Pulse Ox 99 99 99 99 O2 Delivery Nasal Cannula Nasal Cannula Nasal Cannula Nasal Cannula O2 Flow Rate 3.0 2.0 2.0 2.0 01/23/19 01/23/19 01/23/19 01/23/19 18:45 20:14 20:44 23:30 Temp 97.8 98.5 Pulse 95 93 Resp 18 20 B/P (MAP) 117/57 (77) 125/75 (92) Pulse Ox 95 98 99 O2 Delivery Nasal Cannula Room Air Nasal Cannula Nasal Cannula O2 Flow Rate 2.0 2.0 2.0 01/24/19 01/24/19 01/24/19 01/24/19 04:55 05:28 08:00 09:31 Temp 98.0 Pulse 67 Resp 18 B/P (MAP) 147/88 (107) Pulse Ox 95 97 96 O2 Delivery Nasal Cannula Nasal Cannula Nasal Cannula Nasal Cannula O2 Flow Rate 2.0 2.0 2.0 2.0 Intake and Output 01/23/19 01/23/19 01/24/19 14:59 22:59 06:59 Intake Total 1600 ml 1530 ml 0 ml Output Total 850 ml 200 ml Balance 750 ml 1330 ml 0 ml TESFAYE PADILLA [employer] January 24, 2019 10:18
[2019-01-24 11:36] VITALS: BP 151/80
[2019-01-24] MEDS: ASPIRIN 81 MG TAB.CHEW PO SCH (12:40)
[2019-01-24 15:20] VITALS: BP 129/76
[2019-01-24 19:49] VITALS: BP 145/74
[2019-01-24] MEDS: traZODone 50 MG TABLET. PO SCH (21:21)
[2019-01-24 23:18] VITALS: BP 130/80
[2019-01-25] MEDS: IV NORMAL SALINE 1,000ML 1,000 ML IV SCH ×2 (04:30→11:41)
[2019-01-25] MEDS: IPRATRPIUM/ALBUTEROL 0.5/2.5MG 3 ML NEBU. NEB SCH ×3 (05:01→15:35)
--- NOTE | 2019-01-25 05:06 | PN ---
DATE: 01/24/2019 SUBJECTIVE: The patient is resting, slightly propped up in bed, definitely more awake, alert. On questioning her, denied any complaint. Nursing staff did not voice any concern and stated that has generally an uneventful night. The patient stated that she is able to walk with a walker. We will consult the physical therapy. PHYSICAL EXAMINATION: GENERAL: When I examined her, she looked pale, but no jaundice or cyanosis. No lymphadenopathy, no thyromegaly. No jugular venous distension. No lower limb edema. VITAL SIGNS: Her heart rate was 97, blood pressure was 151/80, temperature was 98.4, respiratory rate was 20, and oxygen saturation was 92% on 2 liters of oxygen. HEAD, EYES, EARS, NOSE AND THROAT: Showed normocephalic, atraumatic. NECK: Supple. HEART: Showed normal first and second heart sounds. No gallop, rub or murmur. CHEST: Clear to auscultation. No crepitation or rhonchi. ABDOMEN: Distended, soft, nontender. No guarding or rigidity. No organomegaly. All hernial orifice intact. Bowel sounds normal. NEUROLOGIC: She is definitely more awake, alert, responding appropriately. All her cranial nerves intact. She moves her upper extremities to a greater extent than her lower extremities. She is mostly bed bound. Her intake over the last 24 hours was 3537, output was 625. LABORATORY DATA: Her lab work this morning showed a white cell count 4100, hemoglobin 10, hematocrit 32, MCV 83, and platelet count of 117,000. Her chemistry showed a serum sodium 143, potassium 3.7, chloride 107, bicarbonate 29, anion gap of 7, BUN 17, creatinine 0.7, estimated GFR was 97 mL per minute. Her glucose was 86. Her lactic acid was 1.7, calcium was 8.2. Total bilirubin, AST, ALT, alkaline phosphatase were normal. Total protein was 5.2, albumin 2.2. ASSESSMENT: 1. Altered mental status, resolved. The patient is now more awake, alert. 2. Urinary tract infection, for which she is on IV Rocephin. 3. Acute kidney injury. Her BUN and creatinine on admission was 27 and 2.1. As of this morning, her BUN was 17, creatinine 0.7. 4. Lactic acidosis. PLAN: To continue with IV ceftriaxone. Continue with all other medication, await the result of culture and sensitivity. Once her blood pressure is normalized, we can restart at least her atenolol. [facility] MD DR: MOISÉS/pee JOB#: [id number] / [id number]
[2019-01-25 05:53] VITALS: BP 156/70
[2019-01-25] MEDS: risperiDONE 0.5 MG TABLET. PO SCH (08:56)
[2019-01-25] MEDS: DULoxetine HCL 30 MG CAPSULE.DR PO SCH (08:56)
[2019-01-25] MEDS: LACTOBACILLUS RHAMNOSUS GG 1 CAPSULE. PO SCH (08:56)
[2019-01-25] MEDS: DIVALPROEX 125 MG CAP.SPRINK PO SCH (08:57)
[2019-01-25] MEDS: ACETAMINOPHEN 325 MG TABLET PO SCH ×2 (08:57→13:32)
[2019-01-25] MEDS: ASPIRIN 81 MG TAB.CHEW PO SCH (08:57)
[2019-01-25] MEDS ORDERED: ATENOLOL 25 MG TABLET PO SCH (09:00)
[2019-01-25 11:37] VITALS: BP 139/84
[2019-01-25] MEDS ORDERED: CEFD300C PO (12:06)
--- NOTE | 2019-01-25 13:14 | DS ---
DATE OF DISCHARGE: 01/25/2019 HISTORY OF PRESENT ILLNESS: The patient is an 83-year-old female patient, resident at [facility] [place] in [place], who was admitted with altered mental status and initial investigation showed that the patient has questionable urinary tract infection. She has large amount of leukocyte esterase, 11-20 rbc's, and more than 40 wbc's. Her white cell count was normal; however, her kidney function showed that her BUN and creatinine were markedly elevated with a BUN of 17, creatinine was 1.9. The patient was started on IV antibiotic in the form of Rocephin 1 gram once a day, as well as IV fluid. She was also found to be in atrial fibrillation and was seen in consultation by the Cardiology team. Her echocardiogram showed the patient had moderate concentric left ventricular hypertrophy. Left ventricular systolic function is normal with ejection fraction within normal range. In fact, the ejection fraction was 65-70%. She has normal left ventricular segmental wall motion. There is mild subvalvular aortic stenosis, calculated aortic area is 1.5 square cm with maximum pressure gradient 29 mmHg, mean pressure gradient of 16. Doppler and color flow revealed mild tricuspid regurgitation. Pulmonary artery pressure was slightly elevated at 49 mmHg. The patient was in atrial fibrillation; however, her heart rate was controlled. She is not considered a candidate for anticoagulation and as her level of consciousness improved, and her electrolytes and kidney function improved, a decision was made to discharge her back to [facility] in [place] to continue with oral antibiotic and resume all her medication except her Lasix. PHYSICAL EXAMINATION: GENERAL: When I saw her this morning, she looked well and was clearly in no apparent respiratory distress, pale, but no jaundice, cyanosis, or thyromegaly. No jugular venous distension. No lower limb edema. VITAL SIGNS: Her heart rate was 63, blood pressure was 139/84, temperature was 97.8, respiratory rate was 18, and oxygen saturation was 96% on room air. HEAD, EYES, EARS, NOSE, AND THROAT: Showed normocephalic, atraumatic. NECK: Supple. HEART: Showed normal first and second heart sounds. No gallop, rub, or murmur. CHEST: Clear to auscultation. No crepitation or rhonchi. ABDOMEN: Distended, soft, nontender. No guarding or rigidity. No organomegaly. All hernial orifice intact. Bowel sounds normal. NEUROLOGIC: She was awake, alert, responding appropriately. All cranial nerves intact. She moves extremities without difficulty, though she seemed to be mostly bedbound. Her intake over the last 24 hours was ____, output was 1050. LABORATORY DATA: As of this morning, her serum sodium was 143, potassium 3.7, chloride was 107, bicarbonate 29, anion gap of 7, BUN 17, creatinine 0.7, estimated GFR was 97 mL per minute. Her glucose was 86, calcium was 8.2. Total bilirubin, AST, ALT, alkaline phosphatase were normal. Total protein was 5.2, albumin was 2.2. Her white cell count was 4100, hemoglobin 10, hematocrit 32, MCV 83, and platelet count ____. Her prothrombin time was 11.6, INR 1.2, aPTT was 27. Her urinalysis showed that she has large amount of leukocyte esterase and more than 40 wbc's; however, her blood culture is negative after 3 days and her urine culture showed so far no growth. DISCHARGE MEDICATIONS: The patient was discharged back to [facility] [place] to continue on cefdinir 300 mg twice a day for 4 more days, Tylenol 650 mg 3 times a day, atenolol 25 mg once a day, divalproex sodium 250 mg twice a day, duloxetine for Cymbalta 30 mg once a day. She is on ipratropium bromide, albuterol inhaler, albuterol sulfate for DuoNeb in 3 mL by nebulizer 4 times a day, lisinopril 20 mg once a day, loperamide 2 mg as needed for diarrhea, risperidone 0.5 mg twice a day, and trazodone 25 mg at bedtime. She is also on furosemide 20 mg once a day. FINAL DISCHARGE DIAGNOSES: 1. Altered mental status, resolved. 2. Urinary tract infection. So far, her urine culture is still pending; however, the patient responded very well to ceftriaxone, will be discharged back to [facility] [place] on cefdinir. She has acute on what seemed to be diastolic congestive heart failure, atrial fibrillation/flutter, likely chronic, rate well controlled. She is not a candidate for oral anticoagulation. 3. Hypertension, seems to be well controlled. 4. Mild anemia and thrombocytopenia, stable. 5. Dementia. [facility] MD DR: Portillo JOB#: [id number] / [id number]
[2019-01-25 15:48] VITALS: BP 134/78
--- NOTE | 2019-01-25 17:49 | NUR ---
Discharge Note: DEVON MARY [address] Discharge instructions and discharge home medications reviewed with Neyda and a copy given. All questions have been answered and understanding verbalized. The following instructions and handouts were given: diet, activity, medications, and plan Discontinued lines and drains: peripheral IVs discontinued with no complications. Patient discharged to [facility] via private vehicle.
== END 2019-01-25 17:30 | DRG 871 ==
LOC: ER 07:00 → 1 SOUTH 12:07
PROVIDERS: ADMIT Family Medicine; ATTEND Internal Medicine
DX: A41.9 Sepsis, unspecified organism (principal); E43 Unspecified severe protein-calorie malnutrition; I50.31 Acute diastolic (congestive) heart failure; N17.9 Acute kidney failure, unspecified; N39.0 Urinary tract infection, site not specified; E87.2 Acidosis; I48.92 Unspecified atrial flutter; Z68.25 Body mass index [BMI] 25.0-25.9, adult; D35.00 Benign neoplasm of unspecified adrenal gland; D64.9 Anemia, unspecified; D69.6 Thrombocytopenia, unspecified; F02.80 Dementia in other diseases classified elsewhere, unspecified severity, without behavioral disturbance, psychotic disturbance, mood disturbance, and anxiety; G30.9 Alzheimer's disease, unspecified; I11.0 Hypertensive heart disease with heart failure; I25.10 Atherosclerotic heart disease of native coronary artery without angina pectoris; I35.0 Nonrheumatic aortic (valve) stenosis; K57.30 Diverticulosis of large intestine without perforation or abscess without bleeding; Z99.81 Dependence on supplemental oxygen; F32.9 Major depressive disorder, single episode, unspecified; F41.9 Anxiety disorder, unspecified; M19.90 Unspecified osteoarthritis, unspecified site; I48.2 Chronic atrial fibrillation; Z79.01 Long term (current) use of anticoagulants
CPT/HCPCS: 36415; 36600; 70450; 71045; 74176; 80053; 81001; 82140; 82803; 83605; 83735; 83880; 84484; 85025; 85027; 85610; 85730; 87040; 87086; 87641; 93005; 93306; 94640; 96361; 96374; J0696; J1940; J7620; 92610; 99285-25; J7030